=== PATIENT | male | born 1975 | race African-American/Black ===

== ENCOUNTER 2017-02-21 13:06 | Emergency (ER) | payer SELFPAY ==
[2017-02-21] MEDS ORDERED: IBUPROFEN 800 MG TABLET PO ONE (13:49)
[2017-02-21] MEDS ORDERED: DIPH/PERTUSS(ACELL)/TETANUS VAC/PF 0.5 ML SYR (>=10YO) IM ONE (13:49)
--- NOTE | 2017-02-21 13:49 | ER Document Report ---
ED Hand/Wrist Injury - General Chief Complaint: Finger Injury Stated Complaint: RIGHT PINKEY FINGER PAIN, SWELLING Time Seen by Provider: 02/21/17 13:41 Mode of Arrival: Ambulatory Information source: Patient Notes: 41-year-old male presents to ED for injury to the fifth finger 3 days ago. 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 He took a shower when he got home but did not actually bring the actual injury or put any peroxide on it. Finger is swollen and painful. TRAVEL OUTSIDE OF THE [place] IN LAST 30 DAYS: No - HPI Injury to: Small finger Onset: Other - 3 days Where: Work Timing: Still present, Worse Quality of pain: Sharp, Throbbing Severity: Severe Pain Level: 5 Context: Laceration - 3 Days ago - Related Data Allergies/Adverse Reactions: No Known Allergies Allergy (Verified 02/21/17 14:00) Past Medical History - General Information source: Patient - Social History Smoking Status: Current Every Day Smoker Cigarette use (# per day): Yes - 1/2 ppd Chew tobacco use (# tins/day): No Smoking Education Provided: Yes - less than 1 min Frequency of alcohol use: Social Drug Abuse: None 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 Lives with: Spouse/Significant other Family History: Reviewed & Not Pertinent Patient has suicidal ideation: No Patient has homicidal ideation: No - Past Medical History Cardiac Medical History: Reports: None Pulmonary Medical History: Reports: None EENT Medical History: Reports: None Neurological Medical History: Reports: None Endocrine Medical History: Reports: None Renal/ Medical History: Reports: None Malignancy Medical History: Reports None GI Medical History: Reports: None Musculoskeltal Medical History: Reports None Skin Medical History: Reports None Psychiatric Medical History: Reports: None Traumatic Medical History: Reports: None Infectious Medical History: Reports: None Surgical Hx: Negative Past Surgical History: Reports: None - Immunizations Immunizations up to date: Yes Hx Diphtheria, Pertussis, Tetanus Vaccination: Yes - 02/21/17 Review of Systems - Review of Systems Constitutional: No symptoms reported EENT: No symptoms reported Cardiovascular: No symptoms reported Respiratory: No symptoms reported Gastrointestinal: No symptoms reported Genitourinary: No symptoms reported Male Genitourinary: No symptoms reported Musculoskeletal: Other - right swollen painful finger Skin: No symptoms reported Hematologic/Lymphatic: No symptoms reported Neurological/Psychological: No symptoms reported Physical Exam - Vital signs Vitals: Temp Pulse Resp BP Pulse Ox 98.0 F 55 L 16 122/83 99 02/21/17 13:32 02/21/17 13:32 02/21/17 13:32 02/21/17 13:32 02/21/17 13:32 Interpretation: Normal - General General appearance: Appears well, Alert - HEENT Head: Normocephalic, Atraumatic Eyes: Normal Pupils: PERRL - Respiratory Respiratory status: No respiratory distress Chest status: Nontender Breath sounds: Normal Chest palpation: Normal - Cardiovascular Rhythm: Regular Heart sounds: Normal auscultation Murmur: No - Abdominal Inspection: Normal Distension: No distension Bowel sounds: Normal Tenderness: Nontender Organomegaly: No organomegaly - Back Back: Normal, Nontender - Extremities General upper extremity: Normal color, Normal temperature General lower extremity: Normal inspection, Nontender, Normal color, Normal ROM , Normal temperature, Normal weight bearing. No: David's sign Hand: Tender - right 5th finger, Laceration - right 5th finger 3 days ago, No evidence of human bite, No evidence of FB, Swelling - right 5th finger. No: Nail injury - Neurological Neuro grossly intact: Yes Cognition: Normal Orientation: AAOx4 [place] Coma Scale Eye Opening: Spontaneous [place] Coma Scale Verbal: Oriented Hannah Coma Scale Motor: Obeys Commands Hannah Coma Scale Total: 15 Speech: Normal Motor strength normal: LUE, RUE, LLE, RLE Sensory: Normal - Psychological Associated symptoms: Normal affect, Normal mood - Skin Skin Temperature: Warm Skin Moisture: Dry Skin Color: Normal Course - Re-evaluation Re-evalutation: 02/21/17 21:40 Patient treated with Keflex, [place], and tetanus vaccine for his infection to the fifth finger that he cut 3 days ago. Patient discharged home with a prescription for Keflex and [place]. - Vital Signs Vital signs: Temp Pulse Resp BP Pulse Ox 97.6 F 55 L 16 117/72 98 02/21/17 15:28 02/21/17 15:28 02/21/17 15:28 02/21/17 15:28 02/21/17 15:28 - Diagnostic Test Radiology reviewed: Image reviewed, Reports reviewed Discharge - Discharge Clinical Impression: infected 5th finger right Condition: Stable Disposition: HOME, SELF-CARE Additional Instructions: CELLULITIS: You have an infection of your skin and underlying soft tissues called cellulitis. This is due to bacteria, which can enter through any break in the skin, or even through an irritated hair follicle. Untreated, cellulitis will usually worsen. Antibiotics are required. Usually, warm packs or warm soaks, and elevation of the infected area are recommended. You should start getting better within 24 to 36 hours. Most infections respond quickly to the right medication. Follow-up care is important, however, to check for abscess (boil) formation, unsuspected foreign body, or resistant infection. If you develop fever, chills, or if the area of infection is becoming rapidly more swollen or painful, call the doctor at once. Cephalexin The antibiotic you've been prescribed is a member of the cephalosporin class. This type of antibiotic covers a wide variety of infections, including those of the skin, lungs, and urinary tract. It's useful for staph infections. This antibiotic is slightly similar to the penicillin family. In rare cases , a person who is allergic to penicillin will also be allergic to this medication. If you have had a severe allergic reaction to penicillin, and have not taken this antibiotic since that time, notify your doctor. Antibiotics which cover many germs ("broad spectrum" antibiotics) are more likely to cause diarrhea or "yeast" infections. Women prone to vaginal yeast problems may suffer an attack after taking this antibiotic. In infants, oral thrush (white spots "stuck" on the cheek) or yeast diaper rash may result. See your doctor if these problems occur. Call at once if you develop itching, hives , shortness of breath, or lightheadedness. Epsom Salt Soaks Soak the wound area in a container of warm epsom salt water. If you can't get the wound area into a bucket or andrews, use a folded towel soaked in the epsom salt solution and apply to the area. Use clean hot tap water (about the temperature of a very warm bath), mixing in about one (1) teaspoon for every pint of water. Two gallon --> 16 teaspoons Epsom Salts One gallon --> 8 teaspoons Epsom Salts Two quarts --> 4 teaspoons Epsom Salts One quart --> 2 teaspoons Epsom Salts Soak the wound for about 20 minutes while gently moving it around in the water. Repeat this four (4) times a day. ORAL NARCOTIC MEDICATION: You have been given a prescription for pain control. This medication is a narcotic. It's best taken with food, as nausea can result if taken on an empty stomach. Don't operate machinery or drive within six hours of taking this medication. Do not combine this medicine with alcohol, or with any medication which can cause sedation (such as cold tablets or sleeping pills) unless you get permission from the physician. Narcotics tend to cause constipation. If possible, drink plenty of fluids and eat a diet high in fiber and fruits. Please be aware that prescription narcotics also have the potential for abuse. People become addicted to these medications because of the general sense of wellbeing that they induce. This feeling along with a significant reduction in tension, anxiety, and aggression provides a stimulating seductive quality to these drugs. Once your pain is under control, we encourage you to discard your unused narcotics. FOLLOW-UP CARE: If you have been referred to a physician for follow-up care, call the physician s office for an appointment as you were instructed or within the next two days. If you experience worsening or a significant change in your symptoms, notify the physician immediately or return to the Emergency Department at any time for re-evaluation. Prescriptions: Hydrocodone/Acetaminophen [[place] 5-325 mg Tablet] 1 tab PO Q6HP PRN #7 tablet PRN Reason: Cephalexin Monohydrate [Keflex 500 mg Capsule] 500 mg PO Q6H 7 Days Forms: Return to Work Referrals: LEYLA ELAM DO [ACTIVE STAFF] - Follow up as needed
--- NOTE | 2017-02-21 14:39 | RADIOLOGY REPORT (SQ) ---
EXAM DESCRIPTION: FINGER RIGHT COMPLETED DATE/TIME: 02/21/2017 2:17 pm REASON FOR STUDY: 5th finger injury swelling COMPARISON: None. NUMBER OF VIEWS: Three views. TECHNIQUE: AP, lateral, and oblique images acquired of the right fifth finger. LIMITATIONS: None. FINDINGS: MINERALIZATION: Normal. BONES: No acute fracture or dislocation. No worrisome bone lesions. SOFT TISSUES: Soft tissue swelling around the 5th finger. OTHER: No other significant finding. IMPRESSION: NO RADIOGRAPHIC EVIDENCE OF ACUTE INJURY. COMMENT: SITE OF TRAUMA/COMPLAINT MARKED/STAMP COMPLETED: YES. TECHNICAL DOCUMENTATION: JOB ID: [id number] [employer]- All Rights Reserved
[2017-02-21] MEDS ORDERED: CEPHALEXIN 500 MG CAPSULE PO ONE (15:06)
[2017-02-21 15:29] VITALS: BP 117/72
== END 2017-02-21 15:28 | disposition home or self-care (01) ==
LOC: ER 13:06
DX: L08.9 Local infection of the skin and subcutaneous tissue, unspecified (principal); M79.644 Pain in right finger(s); M79.89 Other specified soft tissue disorders; F17.210 Nicotine dependence, cigarettes, uncomplicated
CPT/HCPCS: 90471; 90715; 99283

== ENCOUNTER 2018-02-12 01:42 | Emergency (ER) | payer SELFPAY ==
[2018-02-12] MEDS ORDERED: ONDANSETRON 4 MG TAB.RAPDIS PO ONE (02:43)
--- NOTE | 2018-02-12 02:46 | ER Document Report ---
ED Fall - General Chief Complaint: Nausea/Vomiting/Diarrhea Stated Complaint: VOMITING Time Seen by Provider: 02/12/18 02:45 Notes: The patient is a 42-year-old male who presents with several hours of nausea, vomiting and watery diarrhea. His baby daughter also has similar symptoms. Patient denies fevers, hematemesis, blood in stool, abdominal pain, flank pain, rash, chest pain or shortness of breath. No recent antibiotics or travel out of the country. TRAVEL OUTSIDE OF THE [place] IN LAST 30 DAYS: No - Related data Allergies/Adverse Reactions: No Known Allergies Allergy (Verified 02/21/17 14:00) Past Medical History - General Information source: Patient - Social History Smoking Status: Unknown if Ever Smoked Family History: Reviewed & Not Pertinent Renal/ Medical History: Denies: Hx Peritoneal Dialysis - Immunizations Immunizations up to date: Yes Hx Diphtheria, Pertussis, Tetanus Vaccination: Yes - 02/21/17 Review of Systems - Review of Systems Notes: REVIEW OF SYSTEMS: CONSTITUTIONAL: -fevers, -chills EENT: -eye pain, -difficulty swallowing, -nasal congestion CARDIOVASCULAR: -chest pain, -syncope. RESPIRATORY: -cough, -SOB GASTROINTESTINAL: -abdominal pain, +nausea, +vomiting, +diarrhea GENITOURINARY: -dysuria, -hematuria MUSCULOSKELETAL: -back pain, -neck pain SKIN: -rash or skin lesions. HEMATOLOGIC: -easy bruising or bleeding. LYMPHATIC: -swollen, enlarged glands. NEUROLOGICAL: -altered mental status or loss of consciousness, -headache, - neurologic symptoms PSYCHIATRIC: -anxiety, -depression. ALL OTHER SYSTEMS REVIEWED AND NEGATIVE. Physical Exam - Notes Notes: PHYSICAL EXAMINATION: GENERAL: Well-appearing, well-nourished and in no acute distress. HEAD: Atraumatic, normocephalic. EYES: Pupils equal round and reactive to light, extraocular movements intact, sclera anicteric, conjunctiva are normal. ENT: nares patent, oropharynx clear without exudates. Moist mucous membranes. NECK: Normal range of motion, supple without lymphadenopathy LUNGS: Breath sounds clear to auscultation bilaterally and equal. No wheezes rales or rhonchi. HEART: Regular rate and rhythm without murmurs ABDOMEN: Soft, nontender, normoactive bowel sounds. No guarding, no rebound. No masses appreciated. EXTREMITIES: Normal range of motion, no pitting or edema. No cyanosis. NEUROLOGICAL: Cranial nerves grossly intact. Normal speech, normal gait. Normal sensory and motor exams. PSYCH: Normal mood, normal affect. SKIN: Warm, Dry, normal turgor, no rashes or lesions noted. Course - Re-evaluation Re-evalutation: Patient appears very well. Abdomen is completely soft and nontender. Labs are unremarkable. After Zofran, he is drinking fluids without any nausea or vomiting. Instructed to stay hydrated and follow-up with his primary care physician. - Laboratory Result Diagrams: 02/12/18 02:37 02/12/18 02:37 Discharge - Discharge Clinical Impression: Nausea, vomiting and diarrhea Condition: Stable Additional Instructions: VOMITING: Vomiting (or nausea without vomiting) can be caused by many other different problems. It can mean that something's wrong with the stomach, such as ulcers or inflammation or the intestinal tract, such as appendicitis. But it can also be a symptom of a problem that has nothing to do with the stomach or intestines. Vomiting is common with severe headaches, earaches, tonsillitis, and kidney infections, etc. We see it with pneumonia or heart attacks. Drugs can cause nausea and vomiting. Many abdominal problems cause vomiting; for example, gallstones, kidney stones, pancreatitis, and intestinal obstruction ( blocked bowels). In most cases, curing the vomiting depends on fixing the problem that caused it. For temporary relief, we may use an anti-nausea medicine. For home use, we can prescribe suppositories, chewable pills, pills that dissolve in the mouth, or liquid anti-nausea drugs. If the vomiting seems to be caused by a problem in the stomach, acid-suppressing drugs may be prescribed as well. It's important to avoid dehydration. Sip small amounts of clear liquids ( soft drinks, tea, broth, etc) . Try to take fluids frequently even if you are vomiting to prevent dehydration. Take increasing amounts of fluid and when liquids are being consumed successfully, advance to small amounts of bland food (toast, soups, mashed potatoes, etc.) until you are able to resume a regular diet. Avoid aspirin, tobacco, and alcohol. If the vomiting worsens, if the problem that's making you vomit worsens, or if there's evidence of bleeding in the stomach (such as black, tarry stool, or bloody or black vomit), you should return immediately. Also, return if abdominal pain worsens or becomes localized to one area or you develop high fever. Call your doctor if you aren't improved in 24 hours. DIARRHEA, NON-SPECIFIC: Diarrhea means frequent, watery stools. There are many causes. Any problem that keeps the intestinal tract from absorbing water from the stool can lead to diarrhea. A sudden new diarrhea problem is usually caused by a virus, food sensitivity, toxic bacteria, or drugs. In this case, we expect the problem to go away soon. Testing is done only if you seem seriously ill from the diarrhea. If you have chronic diarrhea, or diarrhea that keeps coming back, we need to find out why. Chronic diarrhea can be due to inflammation of the bowels such as Crohn's disease or ulcerative colitis, food sensitivity such as intolerance to lactose or wheat protein, irritable bowel syndrome, and other problems. If your diarrhea is a significant problem but it's not clear why you have it, we' ll refer you to a specialist for further testing. During an episode of diarrhea, drink small amounts (two to six ounces) of clear liquids (soft drinks, sport drinks, herb teas, broth, etc). Take fluids frequently to prevent dehydration. It's usually not a problem to take mild anti- diarrhea medication such as Kaopectate or Pepto-Bismol. As the diarrhea eases, advance to small amounts of bland food (mashed potato, toast) for 24 hours. Call the physician if blood appears in your vomit or stool, if vomiting lasts longer than 24 hours, if the abdominal pain worsens or becomes localized to one area, if you develop high fever, or if you become lightheaded and weak. VIRAL SYNDROME: The physician has diagnosed a viral infection. Viruses not only cause "colds," but can cause many different symptoms including generalized aching, fever, headache, cough, diarrhea, nausea, vomiting, and fatigue. The treatment, for the most part, is simply relief of symptoms. This means that antibiotics are usually not given. Rest, fluids, pain medications and, occasionally, medication for the specific symptoms that are most bothersome will be prescribed. Use good handwashing to avoid passing the virus to others. Shared toys should be cleaned with disinfectant. Clean the toilets, sinks, and counter surfaces in bathrooms. Launder clothing in hot water. Contact the physician if you develop any new or unusual symptoms such as severe headache, stiff neck, high fever, chest pain, productive cough, or shortness of breath. You should be rechecked if you don't see marked improvement within seven to 10 days. ANTINAUSEA MEDICATION: You have been given a medication to suppress nausea and vomiting. This type of medication can be given as a shot, pill, or suppository. It will usually last for many hours. Pills and shots usually last six to eight hours. For the typical illness, only one or two doses of the medication may be necessary. Mild lightheadedness may occur. This type of medicine can cause drowsiness. Do not drive or operate dangerous machinery while under its influence. Do not mix with alcohol. See your doctor at once if you have muscle spasms or tightness, or uncontrollable motions (particularly of the neck, mouth, or jaw). Persistent vomiting or severe lightheadedness should also be evaluated by the physician. FOLLOW-UP CARE: If you have been referred to a physician for follow-up care, call the physician s office for an appointment as you were instructed or within the next two days. If you experience worsening or a significant change in your symptoms, notify the physician immediately or return to the Emergency Department at any time for re-evaluation. Prescriptions: Ondansetron [Zofran Odt 4 mg Tablet] 1 - 2 tab PO Q4H PRN #15 tab.rapdis PRN Reason: For Nausea/Vomiting
[2018-02-12 02:49] LABS: ABSOLUTE LYMPHOCYTES (AUTO) 1.5 10^3/uL (0.5-4.7); ABSOLUTE MONOCYTES (AUTO) 0.7 10^3/uL (0.1-1.4); ABSOLUTE NEUT (AUTO) 11.3 10^3/uL (1.7-8.2); BASOPHILS % (AUTO) 0.3 % (0-2); EOSINOPHILS % (AUTO) 0.1 % (0-6); HEMATOCRIT 51.4 % (37.9-51.0); HEMOGLOBIN 17.6 g/dL (13.5-17.0); LYMPHOCYTES % (AUTO) 10.8 % (13-45); MEAN CORPUSCULAR HEMOGLOBIN 32.4 pg (27.0-33.4); MEAN CORPUSCULAR HGB CONC 34.2 g/dL (32.0-36.0); MEAN CORPUSCULAR VOLUME 95 fl (80-97); PLATELET COUNT 358 10^3/uL (150-450); RED BLOOD COUNT 5.43 10^6/uL (4.35-5.55); RED CELL DISTRIBUTION WIDTH 14.6 % (11.5-14.0); SEGMENTED NEUTROPHILS % (AUTO) 83.8 % (42-78); TOTAL CELLS COUNTED % (AUTO) 100 %; WHITE BLOOD COUNT 13.5 10^3/uL (4.0-10.5)
[2018-02-12] MEDS ORDERED: ONDANSETRON HCL INJ/PF 4 MG/2 ML SDV IV ONE (02:51)
[2018-02-12 03:14] LABS: ALANINE AMINOTRANSFERASE 29 U/L (21-72); ALBUMIN 5.7 g/dL (3.5-5.0); ALKALINE PHOSPHATASE 85 U/L (38-126); ASPARTATE AMINO TRANSFERASE 31 U/L (17-59); BILIRUBIN,DIRECT 0.5 mg/dL (0.0-0.4); BILIRUBIN,TOTAL 0.7 mg/dL (0.2-1.3); BLOOD UREA NITROGEN 33 mg/dL (7-20); CALCIUM 10.7 mg/dL (8.4-10.2); GLUCOSE 152 mg/dL (75-110); LIPASE 28.8 U/L (23-300); POTASSIUM 4.3 mmol/L (3.6-5.0)
[2018-02-12 03:19] LABS: CARBON DIOXIDE 23 mmol/L (22-30); CHLORIDE 101 mmol/L (98-107); SODIUM 145.3 mmol/L (137-145)
[2018-02-12 03:20] LABS: ANION GAP 21 (5-19)
== END 2018-02-12 03:45 | disposition home or self-care (01) ==
LOC: ER 01:42
DX: R11.2 Nausea with vomiting, unspecified (principal); R19.7 Diarrhea, unspecified
CPT/HCPCS: 99284; 96374; 36415; 83690; 85025; 80053; J2405

== ENCOUNTER 2018-02-12 18:27 | Emergency (ER) | payer SELFPAY ==
[2018-02-12] MEDS ORDERED: NORMAL SALINE 1000 ML 1,000 ML IV ONE (19:26)
[2018-02-12] MEDS ORDERED: METOCLOPRAMIDE HCL 10 MG TABLET PO ONE (19:28)
--- NOTE | 2018-02-12 19:28 | ER Document Report ---
ED Medical Screen (RME) - General Chief Complaint: Abdominal Cramping Stated Complaint: VOMITING Time Seen by Provider: 02/12/18 19:25 Notes: Patient is a 42-year-old male presents emergency part with a chief complaint of nausea, vomiting, epigastric cramping for the past 36 hours. Patient states that he was seen here last evening given Zofran and discharged home. Patient states that he has still been vomiting despite Zofran and now his emesis is dark in color. States he has not been able to tolerate any solids or liquids throughout the day. States that his family members had similar symptoms last week. Does not have a primary care doctor. Past medical history significant for previous gastric ulcer TRAVEL OUTSIDE OF THE [place] IN LAST 30 DAYS: No - Related Data Allergies/Adverse Reactions: No Known Allergies Allergy (Verified 02/12/18 18:28) Past Medical History Renal/ Medical History: Denies: Hx Peritoneal Dialysis - Immunizations Immunizations up to date: Yes Hx Diphtheria, Pertussis, Tetanus Vaccination: Yes - 02/21/17 Physical Exam - Vital signs Vitals: Temp Pulse Resp BP Pulse Ox 99.8 F 115 H 18 161/115 H 98 02/12/18 19:15 02/12/18 19:15 02/12/18 19:15 02/12/18 19:15 02/12/18 19:15 - Notes Notes: PHYSICAL EXAM GENERAL: Alert, interacts well. ABDOMEN: Soft, nondistended, nontender. No guarding, rebound, or rigidity.. NEUROLOGICAL: Alert and oriented x4. Normal speech. PSYCH: Normal affect, normal mood. Course - Vital Signs Vital signs: Temp Pulse Resp BP Pulse Ox 99.8 F 115 H 18 161/115 H 98 02/12/18 19:15 02/12/18 19:15 02/12/18 19:15 02/12/18 19:15 02/12/18 19:15
[2018-02-12 20:28] LABS: ABSOLUTE LYMPHOCYTES (AUTO) 1.6 10^3/uL (0.5-4.7); ABSOLUTE MONOCYTES (AUTO) 1.2 10^3/uL (0.1-1.4); ABSOLUTE NEUT (AUTO) 7.4 10^3/uL (1.7-8.2); BASOPHILS % (AUTO) 0.3 % (0-2); EOSINOPHILS % (AUTO) 0.1 % (0-6); HEMATOCRIT 49.7 % (37.9-51.0); MEAN CORPUSCULAR HEMOGLOBIN 32.6 pg (27.0-33.4); MEAN CORPUSCULAR HGB CONC 34.2 g/dL (32.0-36.0); MEAN CORPUSCULAR VOLUME 95 fl (80-97); MONOCYTES % (AUTO) 11.9 % (3-13); PLATELET COUNT 296 10^3/uL (150-450); RED BLOOD COUNT 5.22 10^6/uL (4.35-5.55); RED CELL DISTRIBUTION WIDTH 13.9 % (11.5-14.0); SEGMENTED NEUTROPHILS % (AUTO) 71.7 % (42-78); TOTAL CELLS COUNTED % (AUTO) 100 %; WHITE BLOOD COUNT 10.3 10^3/uL (4.0-10.5)
[2018-02-12 20:41] LABS: ALANINE AMINOTRANSFERASE 30 U/L (21-72); ALBUMIN 5.4 g/dL (3.5-5.0); ALKALINE PHOSPHATASE 82 U/L (38-126); ANION GAP 18 (5-19); ASPARTATE AMINO TRANSFERASE 28 U/L (17-59); BILIRUBIN,DIRECT 0.3 mg/dL (0.0-0.4); BILIRUBIN,TOTAL 0.8 mg/dL (0.2-1.3); BLOOD UREA NITROGEN 35 mg/dL (7-20); CALCIUM 10.5 mg/dL (8.4-10.2); CARBON DIOXIDE 26 mmol/L (22-30); CHLORIDE 93 mmol/L (98-107); GLUCOSE 136 mg/dL (75-110); LIPASE 46.8 U/L (23-300); POTASSIUM 4.2 mmol/L (3.6-5.0); SODIUM 137.3 mmol/L (137-145); TOTAL PROTEIN 9.7 g/dL (6.3-8.2)
[2018-02-12] MEDS ORDERED: LIDOCAINE 2% VISCOUS SOLN 20 ML UDCUP PO ONE (22:05)
[2018-02-12] MEDS ORDERED: MAG HYDROX/AL HYDROX/SIMETH SUSP 30 ML UDCUP PO ONE (22:05)
--- NOTE | 2018-02-12 22:05 | ER Document Report ---
HPI - HPI Pain Level: 3 Context: Patient is a 42-year-old male presents emergency part with a chief complaint of nausea, vomiting, epigastric cramping for the past 36 hours. Patient states that he was seen here last evening given Zofran and discharged home. Patient states that he has still been vomiting despite Zofran and now his emesis is dark in color. States he has not been able to tolerate any solids or liquids throughout the day. States that his family members had similar symptoms last week. Does not have a primary care doctor. Past medical history significant for previous gastric ulcer - DERM Skin Color: Normal Past Medical History - Social History Smoking Status: Current Every Day Smoker Frequency of alcohol use: Occasional Family History: Reviewed & Not Pertinent Patient has suicidal ideation: No Patient has homicidal ideation: No Renal/ Medical History: Denies: Hx Peritoneal Dialysis - Immunizations Immunizations up to date: Yes Hx Diphtheria, Pertussis, Tetanus Vaccination: Yes - 02/21/17 Vertical Provider Document - CONSTITUTIONAL Agree With Documented VS: Yes Notes: PHYSICAL EXAM GENERAL: Alert, interacts well. HEAD: Normocephalic, atraumatic. EYES: Pupils equal, round, and reactive to light. Extraocular movements intact. ENT: Oral mucosa moist, tongue midline. NECK: Full range of motion. Supple. Trachea midline. LUNGS: Clear to auscultation bilaterally, no wheezes, rales, or rhonchi. No respiratory distress. HEART: Regular rate and rhythm. No murmurs, gallops, or rubs. ABDOMEN: Soft, nondistended, nontender. No guarding, rebound, or rigidity.. Bowel sounds present in all 4 quadrants. NEUROLOGICAL: Alert and oriented x4. Normal speech. PSYCH: Normal affect, normal mood. SKIN: Warm, dry, normal turgor. No rashes or lesions noted. - INFECTION CONTROL TRAVEL OUTSIDE OF THE [place] IN LAST 30 DAYS: No Course - Re-evaluation Re-evalutation: 02/12/18 22:48 Patient is a 42-year-old male is hemodynamically stable, no acute distress afebrile. Patient without any episodes of emesis in the emergency department. Labs have improved from previous evaluation. No concerns for electrolyte abnormalities, renal or hepatic insufficiency, pancreatitis. No concerns for acute abdominal pathology given patient's physical exam benign vital signs stable. Tolerating p.o. without any difficulty. States that his symptoms have improved after nausea medication and GI cocktail. 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 Patient agrees with plan. Otherwise discussed with him to do a mild clear liquid diet for the next 2 days until his appetite returns. Patient to follow- up with GI supplied on discharge instructions of primary care. Patient given strict return precautions and stable for discharge home. - Vital Signs Vital signs: Temp Pulse Resp BP Pulse Ox 99.8 F 115 H 18 161/115 H 98 02/12/18 19:15 02/12/18 19:15 02/12/18 19:15 02/12/18 19:15 02/12/18 19:15 - Laboratory Result Diagrams: 02/12/18 19:55 02/12/18 19:55 Laboratory results interpreted by me: 02/12/18 19:55 Chloride 93 L BUN 35 H Glucose 136 H Calcium 10.5 H Total Protein 9.7 H Albumin 5.4 H Discharge - Discharge Clinical Impression: Nausea, vomiting and diarrhea Condition: Good Disposition: HOME, SELF-CARE Instructions: Reflux Disease (GERD) ([facility]) Additional Instructions: VOMITING: Vomiting (or nausea without vomiting) can be caused by many other different problems. It can mean that something's wrong with the stomach, such as ulcers or inflammation or the intestinal tract, such as appendicitis. But it can also be a symptom of a problem that has nothing to do with the stomach or intestines. Vomiting is common with severe headaches, earaches, tonsillitis, and kidney infections, etc. We see it with pneumonia or heart attacks. Drugs can cause nausea and vomiting. Many abdominal problems cause vomiting; for example, gallstones, kidney stones, pancreatitis, and intestinal obstruction ( blocked bowels). In most cases, curing the vomiting depends on fixing the problem that caused it. For temporary relief, we may use an anti-nausea medicine. For home use, we can prescribe suppositories, chewable pills, pills that dissolve in the mouth, or liquid anti-nausea drugs. If the vomiting seems to be caused by a problem in the stomach, acid-suppressing drugs may be prescribed as well. It's important to avoid dehydration. Sip small amounts of clear liquids ( soft drinks, tea, broth, etc) . Try to take fluids frequently even if you are vomiting to prevent dehydration. Take increasing amounts of fluid and when liquids are being consumed successfully, advance to small amounts of bland food (toast, soups, mashed potatoes, etc.) until you are able to resume a regular diet. Avoid aspirin, tobacco, and alcohol. If the vomiting worsens, if the problem that's making you vomit worsens, or if there's evidence of bleeding in the stomach (such as black, tarry stool, or bloody or black vomit), you should return immediately. Also, return if abdominal pain worsens or becomes localized to one area or you develop high fever. Call your doctor if you aren't improved in 24 hours. VIRAL SYNDROME: The physician has diagnosed a viral infection. Viruses not only cause "colds," but can cause many different symptoms including generalized aching, fever, headache, cough, diarrhea, nausea, vomiting, and fatigue. The treatment, for the most part, is simply relief of symptoms. This means that antibiotics are usually not given. Rest, fluids, pain medications and, occasionally, medication for the specific symptoms that are most bothersome will be prescribed. Use good handwashing to avoid passing the virus to others. Shared toys should be cleaned with disinfectant. Clean the toilets, sinks, and counter surfaces in bathrooms. Launder clothing in hot water. Contact the physician if you develop any new or unusual symptoms such as severe headache, stiff neck, high fever, chest pain, productive cough, or shortness of breath. You should be rechecked if you don't see marked improvement within seven to 10 days. INTRAVENOUS (I V) FLUIDS: As part of your care today, you received intravenous (IV) fluids. IV fluids are administered to patients who are dehydrated or to those who have certain chemical (electrolyte) abnormalities that need correcting. ANTINAUSEA MEDICATION: You have been given a medication to suppress nausea and vomiting. This type of medication can be given as a shot, pill, or suppository. It will usually last for many hours. Pills and shots usually last six to eight hours. For the typical illness, only one or two doses of the medication may be necessary. Mild lightheadedness may occur. This type of medicine can cause drowsiness. Do not drive or operate dangerous machinery while under its influence. Do not mix with alcohol. See your doctor at once if you have muscle spasms or tightness, or uncontrollable motions (particularly of the neck, mouth, or jaw). Persistent vomiting or severe lightheadedness should also be evaluated by the physician. REGLAN (METOCLOPRAMIDE): Reglan has been prescribed. This medicine affects the stomach and intestines. It can be used to treat nausea and vomiting, to prevent reflux of stomach acid up into the esophagus, or to increase the contractions of the stomach and intestines. It is often prescribed for esophagitis, and for paralysis of the stomach in diabetics. Reglan can cause either mild restlessness or drowsiness. You should contact the doctor at once if you become extremely restless, anxious, or cannot sleep, or if you develop uncontrollable motions of the lips, tongue, or jaw. Do not take alcohol with this medicine. Do not drive or operate machinery until you have been taking this medicine long enough to know how it affects you. Call the doctor if you develop abdominal pains, lightheadedness, black stool, or blood in the stool or vomitus. FOLLOW-UP CARE: If you have been referred to a physician for follow-up care, call the physician s office for an appointment as you were instructed or within the next two days. If you experience worsening or a significant change in your symptoms, notify the physician immediately or return to the Emergency Department at any time for re-evaluation. Prescriptions: Omeprazole Magnesium [Prilosec Otc] 20 mg PO DAILY #30 tablet. Promethazine HCl [Phenergan 25 mg Tablet] 25 - 50 mg PO ASDIR PRN #12 tablet PRN Reason: Sucralfate [Carafate 1 gm Tablet] 1 gm PO ACHS #120 tablet Forms: Return to Work, Parent Work Note Referrals: SONNY VO MD [ACTIVE STAFF] - Follow up in 1 month (Gastroenterology (stomach ) doctor) GRISELDA BANEGAS MD [ACTIVE STAFF] - Follow up in 1 week
[2018-02-13 00:48] VITALS: BP 152/95
== END 2018-02-13 00:46 | disposition home or self-care (01) ==
LOC: ER 18:27
DX: R11.2 Nausea with vomiting, unspecified (principal); R10.13 Epigastric pain
CPT/HCPCS: 99284; 96360; 36415; 83690; 85025; 80053; J3490; J7030

== ENCOUNTER 2020-02-24 00:48 | Emergency (ER) | payer BC ==
[2020-02-24] MEDS ORDERED: ONDANSETRON HCL INJ/PF 4 MG/2 ML SDV IV ONE (01:27)
[2020-02-24] MEDS ORDERED: NORMAL SALINE 1000 ML 1,000 ML IV ONE (01:27)
--- NOTE | 2020-02-24 01:29 | ER Document Report ---
ED Medical Screen (RME) - General Chief Complaint: Vomiting Stated Complaint: VOMITING Time Seen by Provider: 02/24/20 01:27 Notes: Patient is a 44-year-old male who presents to the emergency department with a chief complaint of vomiting. Patient states that he has been vomiting for the past 2 days. States that he also has some pain in his mid umbilical area. States that he has not had a bowel movement in a few days due to him vomiting. Exam: Soft mildly tender abdomen. Exam limited due to patient in sitting position. I have greeted and performed a rapid initial assessment of this patient. A comprehensive ED assessment and evaluation of the patient, analysis of test results and completion of medical decision making process will be conducted by an additional ED providers. TRAVEL OUTSIDE OF THE [place] IN LAST 30 DAYS: No - Related Data Allergies/Adverse Reactions: No Known Allergies Allergy (Verified 02/24/20 01:22) Past Medical History - Social History Frequency of alcohol use: Heavy Drug Abuse: None Renal/ Medical History: Denies: Hx Peritoneal Dialysis - Immunizations Immunizations up to date: Yes Hx Diphtheria, Pertussis, Tetanus Vaccination: Yes - 02/21/17 Physical Exam - Vital signs Vitals: Temp Pulse Resp BP Pulse Ox 99.5 F 97 16 140/100 H 97 02/24/20 01:08 02/24/20 01:08 02/24/20 01:08 02/24/20 01:08 02/24/20 01:08 Course - Vital Signs Vital signs: Temp Pulse Resp BP Pulse Ox 99.5 F 97 16 140/100 H 97 02/24/20 01:22 02/24/20 01:08 02/24/20 01:08 02/24/20 01:08 02/24/20 01:08
[2020-02-24 01:56] LABS: APPEARANCE,URINE SLIGHTLY-CLOUDY; BILIRUBIN,URINE NEGATIVE (NEGATIVE); COLOR,URINE YELLOW; GLUCOSE, URINE NEGATIVE (NEGATIVE); KETONES,URINE NEGATIVE (NEGATIVE); LEUKOCYTE ESTERASE,URINE NEGATIVE (NEGATIVE); NITRITE,URINE NEGATIVE (NEGATIVE); PROTEIN,URINE NEGATIVE (NEGATIVE); URINE SPECIFIC GRAVITY 1.027; UROBILINOGEN,URINE NEGATIVE mg/dL (<2.0)
[2020-02-24 02:03] LABS: ABSOLUTE EOSINOPHILS # (AUTO) 0.2 10^3/uL (0.0-0.6); ABSOLUTE LYMPHOCYTES (AUTO) 3.8 10^3/uL (0.5-4.7); ABSOLUTE MONOCYTES (AUTO) 1.4 10^3/uL (0.1-1.4); ABSOLUTE NEUT (AUTO) 4.8 10^3/uL (1.7-8.2); BASOPHILS % (AUTO) 0.4 % (0-2); EOSINOPHILS % (AUTO) 1.6 % (0-6); HEMATOCRIT 46.6 % (37.9-51.0); HEMOGLOBIN 16.3 g/dL (13.5-17.0); LYMPHOCYTES % (AUTO) 37.4 % (13-45); MEAN CORPUSCULAR HEMOGLOBIN 33.9 pg (27.0-33.4); MEAN CORPUSCULAR HGB CONC 34.9 g/dL (32.0-36.0); MEAN CORPUSCULAR VOLUME 97 fl (80-97); MONOCYTES % (AUTO) 13.8 % (3-13); PLATELET COUNT 313 10^3/uL (150-450); RED BLOOD COUNT 4.81 10^6/uL (4.35-5.55); SEGMENTED NEUTROPHILS % (AUTO) 46.8 % (42-78); TOTAL CELLS COUNTED % (AUTO) 100 %; WHITE BLOOD COUNT 10.2 10^3/uL (4.0-10.5)
[2020-02-24 02:11] LABS: ADD MANUAL MICROSCOPIC YES; ALBUMIN 5.2 g/dL (3.5-5.0); ALKALINE PHOSPHATASE 68 U/L (38-126); ANION GAP 13 (5-19); ASPARTATE AMINO TRANSFERASE 32 U/L (17-59); BLOOD UREA NITROGEN 36 mg/dL (7-20); CALCIUM 10.5 mg/dL (8.4-10.2); CARBON DIOXIDE 31 mmol/L (22-30); CHLORIDE 89 mmol/L (98-107); GLUCOSE 121 mg/dL (75-110); POTASSIUM 4.4 mmol/L (3.6-5.0)
[2020-02-24 02:12] LABS: RBC,URINE 0-1 /HPF
--- NOTE | 2020-02-24 03:20 | RADIOLOGY REPORT (SQ) ---
EXAM DESCRIPTION: [facility]: XR ABDOMEN SUPINE AND ERECT WITH CHEST (ABD ACUTE SERIES) Views: 4 CLINICAL HISTORY: 44 years Male; vomiting; COMPARISON: None. FINDINGS: AP Chest: Lungs are clear without infiltrate, effusion, pneumothorax. Mediastinum is within normal limits for positioning. No acute bone findings. Supine and erect AP abdomen: Bowel gas pattern is nonspecific, with scattered gas but no distention. No air-fluid levels or free air. No pneumatosis. No suspicious calcifications. IMPRESSION: 1. No acute findings.
[2020-02-24] MEDS ORDERED: ONDANSETRON HCL INJ/PF 4 MG/2 ML SDV ONE (05:36)
--- NOTE | 2020-02-24 06:20 | ER Document Report ---
ED General - General Chief Complaint: Vomiting Stated Complaint: VOMITING Time Seen by Provider: 02/24/20 01:27 Mode of Arrival: Ambulatory Information source: Patient TRAVEL OUTSIDE OF THE [place] IN LAST 30 DAYS: No - HPI Onset: Other - over the last few days Onset/Duration: Gradual Quality of pain: Burning, Cramping Severity: Mild Pain Level: 1 Associated symptoms: Nausea, Vomiting, Other - abdominal pain Exacerbated by: Food, Other - drinking alcohol Relieved by: Other - not eating or drinking Similar symptoms previously: Yes - patient has had nausea/vomiting several times before Recently seen / treated by doctor: No Notes: 44 year old male with a history of alcohol abuse (patient drinks 2-3 beers a day or more) here in the ER for several days of nausea, vomiting, and abdominal pains. The patient says the pain is in his epigastric area and just below that area. The patient denies recent sick contacts, ingestion of uncooked foods, recent travel, but the patient has been drinking alcohol recently. The patient denies fevers, chills, sweats, urinary symptoms but he has had some constipation. The patient was MSE-ed before I could see him in the ER and he had been given fluids and zofran which greatly improved his symptoms. - Related Data Allergies/Adverse Reactions: No Known Allergies Allergy (Verified 02/24/20 01:22) Past Medical History - General Information source: Patient - Social History Smoking Status: Current Every Day Smoker Frequency of alcohol use: Heavy - patient drinks 2-3 beers or more a day Drug Abuse: None Family History: Reviewed & Not Pertinent Patient has suicidal ideation: No Patient has homicidal ideation: No Renal/ Medical History: Denies: Hx Peritoneal Dialysis - Immunizations Immunizations up to date: Yes Hx Diphtheria, Pertussis, Tetanus Vaccination: Yes - 02/21/17 Review of Systems - Review of Systems Constitutional: No symptoms reported EENT: No symptoms reported Cardiovascular: No symptoms reported Respiratory: No symptoms reported Gastrointestinal: Abdominal pain, Nausea, Vomiting Genitourinary: No symptoms reported Male Genitourinary: No symptoms reported Musculoskeletal: No symptoms reported Skin: No symptoms reported Hematologic/Lymphatic: No symptoms reported Neurological/Psychological: No symptoms reported -: Yes All other systems reviewed and negative Physical Exam - Vital signs Vitals: Temp Pulse Resp BP Pulse Ox 99.5 F 97 16 140/100 H 97 02/24/20 01:08 02/24/20 01:08 02/24/20 01:08 02/24/20 01:08 02/24/20 01:08 - Notes Notes: GENERAL: Well-appearing, well-nourished and in no acute distress. HEAD: Atraumatic, normocephalic. EYES: Pupils equal round and reactive to light, extraocular movements intact, sclera anicteric, conjunctiva are normal. ENT: External ears normal, nares patent, oropharynx clear without exudates. Moist mucous membranes. NECK: Normal range of motion, supple without lymphadenopathy or JVD. LUNGS: Breath sounds clear to auscultation bilaterally and equal. No wheezes rales or rhonchi. HEART: Regular rate and rhythm without murmurs, rubs or gallops. ABDOMEN: Soft, nontender, normoactive bowel sounds. No guarding, no rebound. No masses appreciated. EXTREMITIES: Normal range of motion, no pitting or edema. No clubbing or cyanosis. NEUROLOGICAL: Cranial nerves II through XII grossly intact. Normal speech, normal gait. PSYCH: Normal mood, normal affect. SKIN: Warm, Dry, normal turgor, no rashes or lesions noted. Course - Re-evaluation Re-evalutation: 02/24/20 06:31 The patient has been having nausea, vomiting, and abdominal pain in the setting of drinking alcohol. Labs show a moderately elevated lipase consistent with alcohol related pancreatitis. Patient no longer has any abdominal tenderness on physical exam. Patient told to stop drinking, eat a bland diet, and follow up with a PCP to have labs (specifically Lipase and CMP ) rechecked. Will refer patient to primary care providers. Will also DC patient with short course of Zofran - Vital Signs Vital signs: Temp Pulse Resp BP Pulse Ox 99.5 F 97 16 140/100 H 97 02/24/20 01:22 02/24/20 01:08 02/24/20 01:08 02/24/20 01:08 02/24/20 01:08 - Laboratory Result Diagrams: 02/24/20 01:32 02/24/20 01:32 Laboratory results interpreted by me: 02/24/20 02/24/20 02/24/20 01:32 01:32 01:32 MCH 33.9 H Henry % (Auto) 13.8 H Sodium 132.6 L Chloride 89 L Carbon Dioxide 31 H BUN 36 H Creatinine 1.31 H Est GFR (MDRD) Non-Af 59 L Glucose 121 H Calcium 10.5 H Total Protein 9.0 H Albumin 5.2 H Lipase 1130.4 H Urine Blood SMALL H - Diagnostic Test Radiology reviewed: Image reviewed, Reports reviewed Discharge - Discharge Clinical Impression: Nausea & vomiting Qualifiers: Vomiting type: unspecified Vomiting Intractability: non-intractable Qualified Code(s): R11.2 - Nausea with vomiting, unspecified Pancreatitis, alcoholic, acute Qualifiers: Acute pancreatitis complication: unspecified Qualified Code(s): K85.20 - Alcohol induced acute pancreatitis without necrosis or infection Disposition: HOME, SELF-CARE Instructions: Pancreatitis ([facility]), Nausea or Vomiting, Nonspecific ([facility]) Additional Instructions: Stop drinking alcohol as this is the cause of your nausea, vomiting, abdominal pain, and pancreatitis. Eat bland diet in the days to come until your symptoms resolve. Use the prescribed zofran as needed for nausea. Follow up with a primary care doctor to have lab work rechecked (specifically your Lipase and a CMP). Prescriptions: Ondansetron [Zofran Odt 4 mg Tablet] 1 tab PO Q8H PRN #15 tab.rapdis PRN Reason: For Nausea/Vomiting Referrals: DG JACOBS MD [COMMUNITY BASED STAFF] - Follow up as needed
[2020-02-24 07:10] VITALS: BP 141/94
== END 2020-02-24 07:13 | disposition home or self-care (01) ==
LOC: ER 00:48
DX: K85.20 Alcohol induced acute pancreatitis without necrosis or infection (principal); R11.2 Nausea with vomiting, unspecified; R10.9 Unspecified abdominal pain; F10.10 Alcohol abuse, uncomplicated; R10.13 Epigastric pain; F17.200 Nicotine dependence, unspecified, uncomplicated
CPT/HCPCS: 99284; 96361; 96374; 36415; 83690; 85025; 80053; 81001; 74022; J2405; J7030